=== PATIENT | male | born 1990 | race Two or more races ===

== ENCOUNTER 2023-07-29 13:20 | Emergency (ER) | payer OTHER ==
[~2023-07-29] VITALS: Ht 167.6 cm; Wt 92.8 kg
[2023-07-29 17:19] VITALS: BP 130/91; PULSE 62; RESP 20; TEMP 97.9; O2SAT 100
[2023-07-29] MEDS ORDERED: IBUP1TAB5 PO (17:51)
== END 2023-07-29 18:16 | disposition home or self-care (01) ==
LOC: ER 13:20
DX: S46.911A Strain of unspecified muscle, fascia and tendon at shoulder and upper arm level, right arm, initial encounter (principal); X50.0XXA Overexertion from strenuous movement or load, initial encounter; Y93.89 Activity, other specified; Y92.69 Other specified industrial and construction area as the place of occurrence of the external cause; Y99.8 Other external cause status
CPT/HCPCS: 73030